=== PATIENT | female | born 1925 | race Caucasian/White ===

== ENCOUNTER → 2016-10-25 | Outpatient (CLI) | payer MEDICARE ==
[~2016-10-25] MED LIST: AMLO2.5T PO; AMLO5 PO; APIX2.5T PO; APIX5TAB PO; ATOR20TA15 PO; CALC1WAF CHEW; COMMODE 3-IN-11 MIS; CYCL1TAB29 PO; ENAL10TA PO; ENAL20TA PO; GETGO ROLLING W1 MI1; HYDR-3366 PO; MULT1TAB96 PO; NITR1SUB3 SL; OCUVTAB PO; OCUVTAB4 PO; OMEG100010 PO; ONDA4TAB7 SL; OXYC1TAB35 PO; OXYC20TA17 PO; PARO10TA2 PO; SENN1TAB PO; STOO100C PO; THER650C PO; TOPR50TA PO; TRIA37.53 PO; TUMS500C CHEW; WALKER WHEELS/F1 MIS; WHEEMIS3
[2016-10-25 17:13] LABS: BLOOD, URINE SMALL (NEG); COMMENT (UR) CULTURE INDICATED; CULTURE IF INDICATED CULTURE INDICATED; GLUCOSE,URINE NEG (NEG); KETONE, URINE NEG (NEG); MUCUS URINE FEW /lpf (OCC); SQUAMOUS EPITHELIAL CELL URINE 1 /hpf (0-5); URINE COLOR YELLOW (YELLW/STRAW)
[2016-10-25 17:15] LABS: NITRITE,URINE POS (NEG)
== END ==
LOC: PLAB 15:32
PROVIDERS: ATTEND Family Medicine
DX: N39.0 Urinary tract infection, site not specified (principal); B96.20 Unspecified Escherichia coli [E. coli] as the cause of diseases classified elsewhere
CPT/HCPCS: 81001; 87077; 87086; 87186

== ENCOUNTER → 2016-12-20 | Outpatient (CLI) | payer MEDICARE ==
[2016-12-20 16:28] LABS: FREE T4 1.19 NG/DL (0.76-1.46); HDL CHOLESTEROL 50.4 MG/DL (40.0-60.0); INDIRECT BILIRUBIN 0.2 MG/DL (0.0-0.8); TOTAL BILIRUBIN ADULT 0.3 MG/DL (0.2-1.0)
== END ==
LOC: PLAB 13:40
PROVIDERS: ATTEND Internal Medicine Interventional Cardiology
DX: I10 Essential (primary) hypertension (principal); E78.2 Mixed hyperlipidemia; Z79.899 Other long term (current) drug therapy
CPT/HCPCS: 36415; 80061; 80076; 82550; 84439; 84443

== ENCOUNTER 2017-01-11 13:56 | Inpatient (IN) | payer MEDICARE ==
[~2017-01-11] VITALS: Ht 157.5 cm; Wt 51.8 kg
[~2017-01-11 13:56] MED LIST changes: -AMLO5 PO; -APIX5TAB PO; -CALC1WAF CHEW; -COMMODE 3-IN-11 MIS; -CYCL1TAB29 PO; -ENAL10TA PO; -GETGO ROLLING W1 MI1; -HYDR-3366 PO; -MULT1TAB96 PO; -OCUVTAB PO; -ONDA4TAB7 SL; -PARO10TA2 PO; -SENN1TAB PO; -THER650C PO; -TRIA37.53 PO; -TUMS500C CHEW; -WALKER WHEELS/F1 MIS; -WHEEMIS3
[2017-01-17] MEDS ORDERED: TUMS500C CHEW (14:28)
[2017-01-17] MEDS ORDERED: THER650C PO (14:28)
[2017-01-17] MEDS ORDERED: PARO10TA2 PO (14:28)
[2017-01-17] MEDS ORDERED: ONDA4TAB7 SL (14:28)
[2017-01-31] MEDS ORDERED: EXPAREL PERI-ARTICULAR INJECTION (TOTAL VOL. 60 ML) P-ARTICULR SCH ×2 (07:30)
[2017-01-31] MEDS ORDERED: INSULIN HUMAN REGULAR 1,000 UNITS/10 ML VIAL SQ PRN (07:30)
[2017-01-31] MEDS ORDERED: SODIUM CHLORIDE 0.9% IV SCH ×2 (07:30→15:00)
[2017-01-31] MEDS ORDERED: LACTATED RINGER'S 1000 ML IV PRN (07:30)
[2017-01-31] MEDS ORDERED: SODIUM CHLORID 0.9% 500 ML IV PRN (07:30)
[2017-01-31] MEDS ORDERED: POVIDONE IODINE 5% (ANTISEPSIS KIT) 4 APPLICATIONS EACH NARE PRN (07:30)
[2017-01-31] MEDS ORDERED: CHLORHEXIDINE GLUCONATE 2 % 1 PACK (2 CLOTHS) TOPICAL PRN (07:30)
[2017-01-31] MEDS: POVIDONE IODINE 7.5% SCRUB 118 ML BOTTLE TOPICAL SCH (07:30)
[2017-01-31] MEDS ORDERED: METOPROLOL TARTRATE 25 MG TAB PO PRN (07:30)
[2017-01-31] MEDS ORDERED: VANCOMYCIN 1000 MG/NS 250 ML (for <70 kg) IV SCH ×2 (07:30)
[2017-01-31] MEDS ORDERED: DEXAMETHASONE SOD PHOS 20 MG/5 ML VIAL IV ONE (07:30)
[2017-01-31] MEDS ORDERED: ceFAZolin 2 GM PREMIX 50 ML IV SCH (07:30)
[2017-01-31] MEDS ORDERED: TRANEXAMIC ACID IV SCH ×2 (07:30→15:00)
[2017-01-31] MEDS ORDERED: DEXAMETHASONE SOD PHOS 20 MG/5 ML VIAL IV SCH (07:45)
[2017-01-31] MEDS ORDERED: OXYC20TA17 PO (08:16)
[2017-01-31] MEDS ORDERED: APIX2.5T PO (08:16)
[2017-01-31 08:20] VITALS: BP 205/85; PULSE 64; RESP 20; TEMP 97.7; O2SAT 100
[2017-01-31] MEDS ORDERED: GENTAMICIN SULFATE 80 MG/2 ML VIAL ONE (11:47)
[2017-01-31] MEDS ORDERED: PROPOFOL 200 MG/20 ML AMP IV ONE (12:26)
[2017-01-31] MEDS ORDERED: ePHEDrine/NS 25 MG/5 ML SYR IV ONE (12:26)
[2017-01-31] MEDS ORDERED: ONDANSETRON HCL 4 MG/2 ML VIAL IV PUSH ONE (12:27)
[2017-01-31] MEDS ORDERED: PHENYLEPH/NS 1000 MCG/10 ML SYR IV ONE (12:27)
[2017-01-31] MEDS ORDERED: LACTATED RINGER'S 1000 ML INJ 1,000 ML IV ONE (12:27)
--- NOTE | 2017-01-31 14:09 | PD.OP ---
cc: Jose Martin Munoz MD Operative Report Date of Surgery: Jan 31, 2017 Preoperative Diagnosis: Left hip severe osteoarthritis Postoperative Diagnosis: Same Procedure: Left total hip arthroplasty Anesthesia: Spinal Surgeon: Jose Martin Munoz [employer] Agent(s): MACKENZIE Cheatham The surgical procedure was assisted by my Advanced Registered Nurse Practitioner. My TUB PULLER presence was necessary throughout this case for the manipulation and positioning of the surgical extremity. My TUB PULLER was assisting me throughout the duration of this procedure. The skill set of an Advance Registered Nurse Practitioner was medically necessary to complete this procedure. During the surgical case, the surgical corsetier was working at the back table and the Advance Registered Nurse Practitioner was directly assisting me. Operation and Findings: IMPLANT DESCRIPTION: 1. [place] Gription Cup, acetabular size 52, secured with 2 screws. 2. [place] AltrX polyethylene, neutral. 4. [place] femoral stem size 10, no collar, standard offset. 5. Femoral head/neck metal, 36, -2. ESTIMATED BLOOD LOSS: 200 cc. JUSTIFICATION FOR PROCEDURE: The patient has end-stage osteoarthritis to the hip. There is an attached conservative measures pathway form in the chart that describes the nonoperative measures that were undertaken prior to consideration of surgical management. The patient understood the risks and benefits of surgical management. See my office notes for further details. PROCEDURE: The patient was brought back to the operative theatre. Adequate anesthesia was obtained. The patient received intravenous and vancomycin and Ancef. The patient was carefully placed on the operative table. The lower extremity was prepped and draped in the usual sterile fashion. Fluoroscopic images were obtained. We made a standard anterior incision over the hip. We dissected through the TFL fascia, exposing the anterior capsule. Arthrotomy was performed in a T-shaped fashion. The capsule was tagged with a #2 FiberWire. End-stage arthritis was identified. Osteotomy was performed through the femoral neck exposing the acetabulum. Remnants of the labrum were resected and osteophytes were removed. We sequentially reamed the acetabulum. We trialed the hip and placed the final cup into position. This was done under fluoroscopic guidance to obtain the appropriate inclination and anteversion. A manhole cover was placed into the acetabular component. We decided to secure the cup with 2 screws. One screw had good purchase and the other screw had excellent purchase. We then placed the final polyethylene into position and confirmed that it was well seated. Capsular attachments on the calcar and the inner aspect of the greater trochanter were resected. On the proximal aspect of the femur we used a rongeur , box osteotome, canal finder, sequential broaches and lateralizing rasp. We calcar planed the proximal femur. Then thoroughly irrigated the wound. We trialed the hip with the appropriate size stem. We placed the final stem in to position and trialed again. The hip was stable while it was externally rotated 70 degrees when the leg was lowered to the floor. The final head was applied, and final fluoroscopic images were obtained. The wound was thoroughly irrigated again. Interarticular injection of liposomal bupivacaine was given. The capsule was closed with #2 FiberWire and #1 Vicryl. The deep fascia was closed with a #2 Stratafix, followed by 2-0 Vicryl in the skin and kathy. Postop plan is to weight-bear as tolerated. DVT prophylaxis will be performed with SCDs, PADMINI altamirano, early mobilization, and resumption of outpatient dosage of Eliquis 2.5 mg by mouth twice a day.. Jose Martin Munoz MD Jan 31, 2017 14:09
[2017-01-31] MEDS ORDERED: HYDR-3366 PO (14:10)
[2017-01-31] MEDS ORDERED: ALUMINUM/MAGNESIUM/SIMETH 30 ML CUP PO PRN (14:15)
[2017-01-31] MEDS ORDERED: ONDANSETRON HCL 4 MG/2 ML VIAL IVP PRN (14:15)
[2017-01-31] MEDS ORDERED: ZOLPIDEM TARTRATE 5 MG TAB PO PRN (14:15)
[2017-01-31] MEDS ORDERED: MAGNESIUM HYDROXIDE SUSP 30 ML CUP PO PRN (14:15)
[2017-01-31] MEDS ORDERED: NALOXONE HCL 0.4 MG/ML AMP IV PRN (14:15)
[2017-01-31] MEDS ORDERED: ACETAMINOPHEN/HYDROcodone 325 MG/10 MG TAB PO PRN (14:15)
[2017-01-31] MEDS ORDERED: Post-op Orders (for Pharmacy) MISC XX ONE (14:15)
[2017-01-31] MEDS ORDERED: diphenhydrAMINE HCL 50 MG/ML VIAL IV PRN (14:15)
[2017-01-31] MEDS ORDERED: SODIUM CHLORIDE 0.9% FLUSH 5 ML FLUSH IVF PRN (14:15)
[2017-01-31] MEDS ORDERED: BISACODYL 10 MG SUPP RECTAL PRN (14:15)
[2017-01-31] MEDS ORDERED: DO NOT ADM ANY ANTICOAGULANT DRUGS PRN (14:29)
[2017-01-31] MEDS ORDERED: MIDAZOLAM HCL 2 MG/2 ML VIAL ONE (14:42)
[2017-01-31] MEDS ORDERED: PILL SPLITTER OTHER PRN (15:00)
--- NOTE | 2017-01-31 15:01 | RADRPT ---
EXAM DATE/TIME: 01/31/2017 12:50 [facility] COMPARISON: No previous studies available for comparison. INDICATIONS : Placement of total left hip. MEDICAL HISTORY : Hypertension. Arthritis. SURGICAL HISTORY : Appendectomy. Tonsillectomy. Hysterectomy. Right carpal tunnel surgery Total right hip surgery. ENCOUNTER: Initial ACUITY: 1 day PAIN SCORE: Non-responsive. LOCATION: Left Hip. FINDINGS: 2 spot intraoperative fluoroscopic views of left hip demonstrate a left total hip arthroplasty with s crew backed acetabular component. There is good alignment. CONCLUSION: Left total hip arthroplasty. Denis Lewis MD on January 31, 2017 at 14:59 Board Certified Radiologist. This report was verified electronically.
[2017-01-31] MEDS: SODIUM CHLOR 0.9% 1000 ML INJ 1,000 ML IV SCH (15:06)
--- NOTE | 2017-01-31 16:04 | RADRPT ---
EXAM DATE/TIME: 01/31/2017 14:55 [facility] COMPARISON: HIP LEFT (AP&LAT 2/3VWS) WO AP PELVIS, January 31, 2017, 12:50. INDICATIONS : Status post orif lt hip. MEDICAL HISTORY : None. SURGICAL HISTORY : None. ENCOUNTER: Subsequent ACUITY: 1 day PAIN SCORE: Non-responsive. LOCATION: Left Hip FINDINGS: AP view of the pelvis with 2 views of the left hip joint demonstrate no fracture or dislocation. Hard miguel is present related to total hip arthroplasty. The acetabular component contains 2 screws. There is adjacent soft tissue air and skin kathy, as expected. Patient is also post right total hip arthr oplasty. CONCLUSION: Spica changes following recent left total hip arthroplasty. No acute finding is identified. Murphy Gibson MD on January 31, 2017 at 16:01 Board Certified Radiologist. This report was verified electronically.
[2017-01-31] MEDS ORDERED: *morphine SULFATE 8 MG/ML PERIprocedure ONLY ONE (17:14)
[2017-01-31 17:30] VITALS: BP 175/70; PULSE 64; RESP 18; TEMP 95.6; O2SAT 100
--- NOTE | 2017-01-31 17:44 | HHI.DCPOC ---
Discharge Care Plan Diagnosis: (1) Osteoarthritis of left hip (2) Status post total hip replacement, left Your Health Problems Are: Difficulty with ADL Goals to Promote Your Health * To prevent worsening of your condition and complications * To maintain your health at the optimal level Directions to Meet Your Goals Take your medications as prescribed Follow your dietary instruction Follow activity as directed Keep your appointments as scheduled Take your immunizations and boosters as scheduled If your symptoms worsen call your PCP, if no PCP go to Urgent Care Center or Emergency Room Smoking is Dangerous to Your Health. Avoid second hand smoke Call the 24-hour hour crisis hotline for domestic abuse at Andrew Degroot Jan 31, 2017 17:44
--- NOTE | 2017-01-31 17:45 | HHI.FF ---
Face to Face Verification Diagnosis: (1) Osteoarthritis of left hip (2) Status post total hip replacement, left Physical Therapy Gait training, Transfer training, bed to chair Hip: Total hip Left LE Weight Bearing: WB as tolerated Left LE Range of Motion: Active ROM Nursing Nursing: Dressing changes Dressing Changes: Daily dressing change I have seen patient Roberta Kirkpatrick on 01/31/17. My clinical findings support the need for the requested home health care services because: Limited ability to care for self High risk of falls I certify that my clinical findings support that this patient is homebound because: Post-op weakness Unsteady gait/balance Andrew Degroot Jan 31, 2017 17:45
[2017-01-31] MEDS ORDERED: WALKER WHEELS/F1 MIS (17:46)
[2017-01-31] MEDS ORDERED: COMMODE 3-IN-11 MIS (17:46)
[2017-01-31] MEDS: ACETAMINOPHEN/HYDROcodone 325 MG/10 MG TAB PO PRN ×2 (17:48→22:41)
[2017-01-31] MEDS: MORPHINE SULFATE 4 MG/ML INJ IV PUSH PRN ×2 (18:38→21:26)
[2017-01-31 20:15] VITALS: BP 154/69; PULSE 76; RESP 15; TEMP 96.5; O2SAT 99
[2017-01-31] MEDS ORDERED: METOPROLOL SUCCINATE 50 MG EXTENDED RELEASE TAB PO SCH (21:00)
[2017-01-31] MEDS: SODIUM CHLORIDE 0.9% FLUSH 5 ML FLUSH IVF SCH (21:00)
[2017-01-31] MEDS: amLODIPine BESYLATE 5 MG TAB PO SCH (21:06)
[2017-01-31] MEDS: ENALAPRIL MALEATE 10 MG TAB PO SCH (21:06)
[2017-01-31] MEDS: ATORVASTATIN 20 MG TAB PO SCH (21:06)
[2017-02-01] VITALS (7 sets, daily range): BP systolic 144–176; BP diastolic 59–76; PULSE 73–91; RESP 16–20; TEMP 96.2–98.9; O2SAT 95–100
[2017-02-01] MEDS: MORPHINE SULFATE 4 MG/ML INJ IV PUSH PRN (00:54)
[2017-02-01] MEDS: SODIUM CHLOR 0.9% 1000 ML INJ 1,000 ML IV SCH ×3 (01:00→21:00)
[2017-02-01] MEDS: ACETAMINOPHEN/HYDROcodone 325 MG/10 MG TAB PO PRN ×2 (03:37→08:38)
[2017-02-01] MEDS: POVIDONE IODINE 7.5% SCRUB 118 ML BOTTLE TOPICAL SCH (04:14)
[2017-02-01 07:23] LABS: HEMATOCRIT 31.8 % (35.0-46.0); MEAN CELL VOLUME 91.8 FL (80.0-100.0); MEAN CORPUSCULAR HEMOGLOBIN 30.7 PG (27.0-34.0); MEAN CORPUSCULAR HGB CONC 33.4 % (32.0-36.0); PLATELET COUNT 136 TH/MM3 (150-450); RED BLOOD COUNT 3.46 MIL/MM3 (4.00-5.30); RED CELL DISTRIBUTION WIDTH 12.7 % (11.6-17.2); REVIEW FLAG FINAL; WHITE BLOOD COUNT 10.8 TH/MM3 (4.0-11.0)
[2017-02-01] MEDS: PARoxetine HCL 20 MG TAB PO SCH (08:38)
[2017-02-01] MEDS: amLODIPine BESYLATE 5 MG TAB PO SCH ×2 (08:39→20:42)
[2017-02-01] MEDS: ENALAPRIL MALEATE 10 MG TAB PO SCH ×2 (08:39→20:41)
[2017-02-01] MEDS: SODIUM CHLORIDE 0.9% FLUSH 5 ML FLUSH IVF SCH ×2 (08:43→20:44)
[2017-02-01] MEDS ORDERED: APIXABAN 2.5 MG TABLET PO SCH ×2 (09:00→14:00)
--- NOTE | 2017-02-01 11:48 | PD.CONS ---
HPI Service [facility] Consult Requested By Dr. Munoz Reason for Consult Medical management Primary Care Physician Silvestre Dozier MD Diagnoses: (1) Osteoarthritis of left hip (2) Status post total hip replacement, left (3) Coronary artery disease (4) Hypertension History of Present Illness 89-year-old female with a medical history significant for hypertension, hyperlipidemia, coronary artery disease, osteoarthritis admitted for left hip arthroplasty. Patient reports she has had problems with the left hip for years. She has tried conservative management with no significant relief. The patient was admitted for left knee arthroplasty. She is seen postoperatively. Currently she is complaining of severe pain. [place] is not helping. It is worth noting she was previously under the care of pain management and may require more pain medications. She reports her coronary artery disease has been stable. She had a stent placed in 2011. No chest pain or shortness of breath with exertion. The rest of the patient's medical problems are stable. Review of Systems Constitutional: DENIES: Fever, Chills Eyes: DENIES: Double Vision Ears, nose, mouth, throat: DENIES: Oral lesions Respiratory: DENIES: Cough, Shortness of breath Cardiovascular: DENIES: Chest pain, Palpitations Gastrointestinal: DENIES: Nausea, Vomiting Genitourinary: DENIES: Dysuria Musculoskeletal: COMPLAINS OF: Joint pain, Stiffness Integumentary: DENIES: Rash Neurologic: DENIES: Headache Psychiatric: DENIES: Anxiety, Confusion Except as stated in HPI: all other systems reviewed are Neg Past Family Social History Allergies: Coded Allergies: Lyrica (Verified Allergy, Severe, ANKLES SWELL, 01/31/17) Past Medical History Hypertension Hyperlipidemia Osteoarthritis Coronary artery disease Chronic back pain Past Surgical History Appendectomy Bladder lift surgery Hand surgery Reported Medications Reported Meds & Active Scripts Active [place] (Hydrocodone-Acetaminophen) 10-325 Mg Tab 1-2 Tab PO Q4H PRN Reported Oxycontin (Oxycodone HCl) 20 Mg Tab 20 Mg PO Q12HR Eliquis (Apixaban) 2.5 Mg Tab 2.5 Mg PO BID Theracran Hp (Cranberry (Vaccinium Macrocarpon)) 180 Mg Cap 1 Cap PO BID Tums (Calcium Carbonate (Antacid)) 500 Mg Chew 500 Mg CHEW PRN Ondansetron Odt 4 Mg Tab 4 Mg SL Q6HR PRN Paroxetine (Paroxetine HCl) 10 Mg Tab 10 Mg PO DAILY Enalapril (Enalapril Maleate) 20 Mg Tab 20 Mg PO BID Amlodipine (Amlodipine Besylate) 2.5 Mg Tab 2.5 Mg PO BID Atorvastatin (Atorvastatin Calcium) 20 Mg Tab 20 Mg PO HS Toprol XL (Metoprolol Succinate) 50 Mg Tab 75 Mg PO BID Stool Softener (Docusate Sodium) 100 Mg Cap 200 Mg PO HS PRN Nitroglycerin SL (Nitroglycerin) 0.4 Mg Subl 0.4 Mg SL DIRECTED PRN ONE TABLET UNDER THE TONGUE NEEDED FOR CHEST PAIN, MAY REPEAT EVERY FIVE MINUTES FOR A TOTAL OF 3 DOSES OR CALL 911 IF NO RELIEF [place] 3 1000 mg ([place]-3 Fatty Acids) 1 Cap Cap 1 Cap PO DAILY Oxycodone-Acetaminophen 7.5-325 mg Tab 1 Tab PO Q4H PRN Preservision Areds (Multiple Vitamins W/ Minerals) 1 Tab 2 Tab PO DAILY Family History Reviewed and noncontributory. Social History No tobacco or alcohol use. Physical Exam Vital Signs Vital Signs Date Time Temp Pulse Resp B/P Pulse Ox O2 Delivery O2 Flow Rate FiO2 02/01/17 09:14 95 21 02/01/17 08:00 96.8 74 19 161/70 99 02/01/17 04:20 97.9 80 16 144/59 100 02/01/17 00:35 97.0 83 16 160/69 100 01/31/17 20:15 96.5 76 15 154/69 99 01/31/17 18:44 Nasal Cannula 2.00 01/31/17 17:30 95.6 64 18 175/70 100 01/31/17 17:00 97.4 75 14 157/72 99 Nasal Cannula 2 01/31/17 16:45 73 14 150/75 99 01/31/17 16:30 60 14 144/67 99 01/31/17 16:15 58 16 155/72 99 01/31/17 16:00 59 16 167/75 100 01/31/17 15:45 55 12 177/75 99 01/31/17 15:30 53 12 174/75 100 01/31/17 15:15 56 12 177/77 99 01/31/17 15:00 57 10 174/82 99 01/31/17 14:45 50 10 174/74 99 Nasal Cannula 2 01/31/17 14:35 85 12 140/70 99 Nasal Cannula 2 Physical Exam GENERAL: Elderly female reporting significant discomfort on the left hip. SKIN: No rashes, ecchymoses or lesions. Cool and dry. HEAD: Atraumatic. Normocephalic. No temporal or scalp tenderness. EYES: Pupils equal round and reactive.. ENT: Nose without drainage. Airway patent. NECK: Trachea midline. No JVD or lymphadenopathy. Supple, nontender, no meningeal signs. CARDIOVASCULAR: Regular rate and rhythm without murmurs, gallops, or rubs. RESPIRATORY: Clear to auscultation. Breath sounds equal bilaterally. No wheezes , rales, or rhonchi. GASTROINTESTINAL: Abdomen soft, non-tender, nondistended. No hepato-splenomegaly , or palpable masses. No guarding. MUSCULOSKELETAL: Left hip postoperative dressing is clean and dry. Patient is not willing to move the hip due to pain. Other extremities without edema. NEUROLOGICAL: Awake and alert. Normal speech. Laboratory Laboratory Tests Test 02/01/17 06:00 White Blood Count 10.8 Red Blood Count 3.46 Hemoglobin 10.6 Hematocrit 31.8 Mean Corpuscular Volume 91.8 Mean Corpuscular Hemoglobin 30.7 Mean Corpuscular Hemoglobin 33.4 Concent Red Cell Distribution Width 12.7 Platelet Count 136 Mean Platelet Volume 10.0 Result Diagram: 02/01/17 0600 Imaging Last Impressions Hip and Pelvis X-Ray 01/31/17 0000 Signed Impressions: Service Date/Time: Tuesday, January 31, 2017 14:55 - CONCLUSION: Spica changes following recent left total hip arthroplasty. No acute finding is identified. Murphy Gibson MD Hip X-Ray 01/31/17 0000 Signed Impressions: Service Date/Time: Tuesday, January 31, 2017 12:50 - CONCLUSION: Left total hip arthroplasty. Denis Lewis MD Assessment and Plan Problem List: (1) Osteoarthritis of left hip ICD Code: M16.12 Status: Acute (2) Status post total hip replacement, left ICD Code: Z96.642 Status: Acute (3) Coronary artery disease ICD Code: I25.10 Status: Acute (4) Hypertension ICD Code: I10 Status: Acute Assessment and Plan 89-year-old female with: Osteoarthritis of the left hip status post arthroplasty: - Pain is currently uncontrolled. She was previously under the care of pain management and may have a higher tolerance for pain medication. Given her advanced age, will give her 1 dose of Percocet and if pain better control, would change [place] to Percocet. - Further postop care per orthopedics. Coronary artery disease: Continue Lipitor, metoprolol. Patient on Eliquis. Hypertension: Continue metoprolol, enalapril, and Norvasc. Depression: Continue Paxil GI prophylaxis: PPI. Stool softener PRN constipation. DVT PPx: Betty Mcneill MD Feb 01, 2017 11:48
[2017-02-01] MEDS ORDERED: oxyCODONE/ACETAMINOPHEN 7.5 MG/325 MG TAB PO ONE (12:00)
--- NOTE | 2017-02-01 13:18 | PD.ORT.PN ---
Subjective Post Op Day #: 1 Subjective Remarks The patient is resting in bed today with moderate pain. Patient's hydrocodone was not effective. Patient was given Percocet by medical with better benefit. Objective Vitals Vital Signs Date Time Temp Pulse Resp B/P Pulse Ox O2 Delivery O2 Flow Rate FiO2 02/01/17 12:00 96.2 78 18 176/76 100 02/01/17 09:14 95 21 02/01/17 08:00 96.8 74 19 161/70 99 02/01/17 04:20 97.9 80 16 144/59 100 02/01/17 00:35 97.0 83 16 160/69 100 01/31/17 20:15 96.5 76 15 154/69 99 01/31/17 18:44 Nasal Cannula 2.00 01/31/17 17:30 95.6 64 18 175/70 100 01/31/17 17:00 97.4 75 14 157/72 99 Nasal Cannula 2 01/31/17 16:45 73 14 150/75 99 01/31/17 16:30 60 14 144/67 99 01/31/17 16:15 58 16 155/72 99 01/31/17 16:00 59 16 167/75 100 01/31/17 15:45 55 12 177/75 99 01/31/17 15:30 53 12 174/75 100 01/31/17 15:15 56 12 177/77 99 01/31/17 15:00 57 10 174/82 99 01/31/17 14:45 50 10 174/74 99 Nasal Cannula 2 01/31/17 14:35 85 12 140/70 99 Nasal Cannula 2 I/O 01/31/17 01/31/17 01/31/17 02/01/17 02/01/17 02/01/17 07:00 15:00 23:00 07:00 15:00 23:00 Intake Total 1800 ml 680 ml 600 ml Output Total 1050 ml 725 ml 750 ml Balance 750 ml -45 ml -150 ml Intake Oral 480 ml 600 ml IV Total 200 ml Other 1800 ml Output Urine Total 750 ml 725 ml 750 ml Estimated Blood Loss 300 ml # Voids 1 # Bowel Movements 1 0 0 Result Diagram: 02/01/17 0600 Procedures Left SHYANN Objective Remarks The patient's dressing is C/D/I. EHL/TA/G intact. 2+ pedal pulse. Mild swelling. + SILT. Calf is soft and nontender. Assessment & Plan Ortho Post Op Day #: 1 Problem List: Assessment and Plan POD #1: Left SHYANN 1. WBAT LLE 2. Eliquis for DVT prophylaxis 3. Ice to the left hip PRN 4. Anticipatory discharge to home with home health vs. [facility] on Sunday. 5. Changing patient's pain medication from hydrocodone to percocet. Andrew Degroot Feb 01, 2017 13:18
[2017-02-01] MEDS: APIXABAN 2.5 MG TABLET PO SCH (14:10)
[2017-02-01] MEDS ORDERED: DEXAMETHASONE SOD PHOS 20 MG/5 ML VIAL IV ONE (15:00)
[2017-02-01] MEDS: oxyCODONE/ACETAMINOPHEN 7.5 MG/325 MG TAB PO PRN ×2 (15:38→20:42)
[2017-02-01] MEDS: MULTIVITAMINS/MINERALS THERAPEUTIC TAB PO SCH (20:42)
[2017-02-01] MEDS: METOPROLOL TARTRATE 50 MG TAB PO SCH (20:44)
[2017-02-01] MEDS: ATORVASTATIN 20 MG TAB PO SCH (20:44)
[2017-02-01] MEDS: DOCUSATE SODIUM 100 MG CAP PO SCH (20:44)
[2017-02-02] VITALS: BP 154/72; PULSE 75; RESP 20; TEMP 97.9; O2SAT 97
[2017-02-02] MEDS: oxyCODONE/ACETAMINOPHEN 7.5 MG/325 MG TAB PO PRN ×3 (01:12→12:22)
[2017-02-02] MEDS: APIXABAN 2.5 MG TABLET PO SCH ×2 (01:16→12:23)
[2017-02-02 04:00] VITALS: BP 133/60; PULSE 65; RESP 18; TEMP 97.1; O2SAT 97
[2017-02-02] MEDS: SODIUM CHLOR 0.9% 1000 ML INJ 1,000 ML IV SCH (07:00)
[2017-02-02 07:16] LABS: HEMATOCRIT 30.8 % (35.0-46.0); MEAN CELL VOLUME 90.7 FL (80.0-100.0); MEAN CORPUSCULAR HEMOGLOBIN 30.3 PG (27.0-34.0); MEAN CORPUSCULAR HGB CONC 33.5 % (32.0-36.0); PLATELET COUNT 131 TH/MM3 (150-450); RED CELL DISTRIBUTION WIDTH 12.7 % (11.6-17.2); REVIEW FLAG FINAL; WHITE BLOOD COUNT 12.5 TH/MM3 (4.0-11.0)
[2017-02-02] MEDS: POVIDONE IODINE 7.5% SCRUB 118 ML BOTTLE TOPICAL SCH (07:30)
[2017-02-02] MEDS: DOCUSATE SODIUM 100 MG CAP PO SCH (07:58)
[2017-02-02] MEDS: MULTIVITAMINS/MINERALS THERAPEUTIC TAB PO SCH (07:58)
[2017-02-02] MEDS: PARoxetine HCL 20 MG TAB PO SCH (07:59)
[2017-02-02] MEDS: SODIUM CHLORIDE 0.9% FLUSH 5 ML FLUSH IVF SCH (07:59)
[2017-02-02] MEDS: ENALAPRIL MALEATE 10 MG TAB PO SCH (07:59)
[2017-02-02] MEDS: METOPROLOL TARTRATE 50 MG TAB PO SCH (07:59)
[2017-02-02] MEDS: amLODIPine BESYLATE 5 MG TAB PO SCH (07:59)
[2017-02-02 08:00] VITALS: BP_SYST 126; BP_SYST 131; BP_DIAS 59; BP_DIAS 60; PULSE 65; PULSE 71; RESP 14; RESP 18; TEMP 97; TEMP 99.5; O2SAT 94
[2017-02-02 12:00] VITALS: BP 140/65; PULSE 70; RESP 18; TEMP 98; O2SAT 99
--- NOTE | 2017-02-04 23:23 | HHI.DS ---
Discharge Summary Admission Date Jan 31, 2017 at 06:45 Discharge Date: Feb 02, 2017 Admitting Diagnosis OA of left hip Status post total hip replacement, left Diagnosis: (1) Osteoarthritis of left hip Diagnosis: Principal (2) Status post total hip replacement, left Diagnosis: Principal Procedures Left SHYANN Brief History This is a 89 year old female patient with severe OA of the left hip. CBC/BMP: 02/02/17 0639 Significant Findings Laboratory Tests Test 02/02/17 06:39 White Blood Count 12.5 TH/MM3 (4.0-11.0) Red Blood Count 3.40 MIL/MM3 (4.00-5.30) Hemoglobin 10.3 GM/DL (11.6-15.3) Hematocrit 30.8 % (35.0-46.0) Platelet Count 131 TH/MM3 (150-450) PE at Discharge The patient's dressing is C/D/I. EHL/TA/G intact. 2+ pedal pulse. Mild swelling. + SILT. Calf is soft and nontender. Hospital Course The patient was admitted to the hospital for severe OA of the left hip for a left SHYANN. The patient's surgery went well with no complications. The patient is WBAT on the left LE. The patient was placed on a regular diet. The patient was discharged to a SNF and will f/u with Dr. Munoz in 2 weeks. Pt Condition on Discharge: Stable Discharge Disposition: Disch w/ Home Health Serv Discharge Instructions Diet Instructions: As Tolerated, No Restrictions Activities You Can Perform: Weight Bearing as Lior Activities to Avoid: Strenuous Activity Follow up Referrals: Orthopedics with Jose Martin Munoz MD New Medications: Commode 3-in-1 (Commode 3-in-1) 1 Mis Mis 1 EA .ROUTE DIRECTED #1 Ref 0 EA Hydrocodone-Acetaminophen ([place]) 10-325 Mg Tab 1-2 TAB PO Q4H PRN PAIN #60 Ref 0 TAB Walker with Front Wheels (Walker with Front Wheels) 1 Mis Mis 1 EA .ROUTE DIRECTED #1 Ref 0 EA Continued Medications: Amlodipine (Amlodipine) 2.5 Mg Tab 2.5 MG PO BID Blood Pressure Management #30 Ref 0 TAB Apixaban (Eliquis) 2.5 Mg Tab 2.5 MG PO BID Blood Clot Prevention Ref 0 TAB Atorvastatin (Atorvastatin) 20 Mg Tab 20 MG PO HS Cholesterol Management #30 Ref 0 TAB Calcium Carbonate (Antacid) (Tums) 500 Mg Chew 500 MG CHEW PRN HEARTBURN Ref 0 TAB Cranberry (Vaccinium Macrocarpon) (Theracran Hp) 180 Mg Cap 1 CAP PO BID Docusate Sodium (Stool Softener) 100 Mg Cap 200 MG PO HS PRN CONSTIPATION Enalapril (Enalapril) 20 Mg Tab 20 MG PO BID Blood Pressure Management #30 Ref 0 TAB Metoprolol Succinate ER 24 HR (Toprol XL) 50 Mg Tab 75 MG PO BID Blood Pressure Management #30 Ref 0 TAB Multiple Vitamins W/ Minerals (Preservision Areds) 1 Tab 2 TAB PO DAILY Nutritional Supplement Ref 0 TAB Nitroglycerin SL (Nitroglycerin SL) 0.4 Mg Subl 0.4 MG SL DIRECTED ONE TABLET UNDER THE TONGUE NEEDED FOR CHEST PAIN, MAY REPEAT EVERY FIVE MINUTES FOR A TOTAL OF 3 DOSES OR CALL 911 IF NO RELIEF PRN CHEST PAIN #100 Ref 0 TAB.SL Ondansetron Odt (Ondansetron Odt) 4 Mg Tab 4 MG SL Q6HR PRN Nausea/Vomiting Ref 0 TAB Paroxetine (Paroxetine) 10 Mg Tab 10 MG PO DAILY #30 Ref 0 TAB Discontinued Medications: Thomas-3 Fatty Acids (Thomas 3 1000 mg) 1 Cap Cap 1 CAP PO DAILY Nutritional Supplement Oxycodone ER (Oxycontin) 20 Mg Tab 20 MG PO Q12HR Pain Management Ref 0 TAB Oxycodone-Acetaminophen (Oxycodone-Acetaminophen) 7.5-325 mg Tab 1 TAB PO Q4H PRN PAIN Ref 0 TAB Andrew Degroot Feb 04, 2017 23:23
[2017-02-12] MEDS ORDERED: WHEEMIS3 (15:37)
[2017-02-12] MEDS ORDERED: GETGO ROLLING W1 MI1 (15:37)
[2017-02-12] MEDS ORDERED: COMMODE 3-IN-11 MIS (15:37)
[2017-02-15] MEDS ORDERED: PARO10TA2 PO (12:25)
[2017-02-15] MEDS ORDERED: OCUVTAB PO (12:25)
[2017-02-15] MEDS ORDERED: TOPR50TA PO (12:25)
[2017-02-15] MEDS ORDERED: SENN1TAB PO (12:25)
[2017-02-15] MEDS ORDERED: CYCL1TAB29 PO (12:25)
[2017-02-15] MEDS ORDERED: OXYC1TAB35 PO (12:25)
[2017-02-15] MEDS ORDERED: ATOR20TA15 PO (12:25)
[2017-02-15] MEDS ORDERED: ENAL10TA PO (12:25)
[2017-02-15] MEDS ORDERED: AMLO5 PO (12:25)
[2017-02-15] MEDS ORDERED: APIX5TAB PO (12:25)
== END 2017-02-02 12:55 | DRG 470 ==
LOC: HSDI 01-31 06:45 → N06B 01-31 17:36
PROVIDERS: ADMIT Orthopaedic Surgery; ATTEND Orthopaedic Surgery
PROC: 0SRB02A Replacement of Left Hip Joint with Metal on Polyethylene Synthetic Substitute, Uncemented, Open Approach (ICD-10-PCS; principal; 2017-01-31 12:09)
DX: M16.12 Unilateral primary osteoarthritis, left hip (principal); I10 Essential (primary) hypertension; F32.9 Major depressive disorder, single episode, unspecified; I25.10 Atherosclerotic heart disease of native coronary artery without angina pectoris; Z95.5 Presence of coronary angioplasty implant and graft; Z79.02 Long term (current) use of antithrombotics/antiplatelets; E78.5 Hyperlipidemia, unspecified; M54.9 Dorsalgia, unspecified; G89.29 Other chronic pain
CPT/HCPCS: 73502; 76000; 85027; 86850; 86900; 86901; 94150; C1776; C9290; J0690; J1100; J1200; J1580; J2250; J2270; J2370; J2405; J3010; J3370; J7030; J7050; J7120

== ENCOUNTER → 2017-01-17 | Outpatient (CLI) | payer MEDICARE ==
[~2017-01-17] MED LIST changes: +AMLO5 PO; +APIX5TAB PO; +CALC1WAF CHEW; +COMMODE 3-IN-11 MIS; +CYCL1TAB29 PO; +ENAL10TA PO; +GETGO ROLLING W1 MI1; +HYDR-3366 PO; +MULT1TAB96 PO; +OCUVTAB PO; +ONDA4TAB7 SL; +PARO10TA2 PO; +SENN1TAB PO; +THER650C PO; +TRIA37.53 PO; +TUMS500C CHEW; +WALKER WHEELS/F1 MIS; +WHEEMIS3
[2017-01-17 14:04] LABS: AUTOMATED NEUTROPHIL # 2.7 TH/MM3 (1.8-7.7); BASOPHIL % 0.2 % (0.0-2.0); EOSINOPHIL % 0.9 % (0.0-4.0); HEMATOCRIT 37.9 % (35.0-46.0); HEMO FLAGS DIFF FINAL; LYMPH % 37.5 % (9.0-44.0); MEAN CELL VOLUME 91.8 FL (80.0-100.0); MEAN CORPUSCULAR HGB CONC 33.8 % (32.0-36.0); MONO % 9.3 % (0.0-8.0); NEUT % 52.1 % (16.0-70.0); PLATELET COUNT 196 TH/MM3 (150-450); RED BLOOD COUNT 4.13 MIL/MM3 (4.00-5.30); WHITE BLOOD COUNT 5.2 TH/MM3 (4.0-11.0)
[2017-01-17 14:10] LABS: APTT (PATIENT) 25.4 SEC (24.3-30.1); PROTHROMBIN TIME - PATIENT 10.7 SEC (9.8-11.6)
[2017-01-17 14:20] LABS: WESTERGREN SEDIMENTATION RATE 23 mm/hr (0-30)
[2017-01-17 14:24] LABS: BLOOD, URINE TRACE (NEG); COMMENT (UR) CULT NOT INDICATED; CULTURE IF INDICATED CULT NOT INDICATED; GLUCOSE,URINE NEG (NEG); KETONE, URINE NEG (NEG); MUCUS URINE FEW /lpf (OCC); NITRITE,URINE NEG (NEG); SQUAMOUS EPITHELIAL CELL URINE <1 /hpf (0-5); URINE COLOR YELLOW (YELLW/STRAW)
[2017-01-17 14:29] LABS: ANION GAP 5 MEQ/L (5-15); AST (GOT) 19 U/L (15-37); BICARBONATE 34.7 MEQ/L (21.0-32.0); BLOOD UREA NITROGEN 24 MG/DL (7-18); CHLORIDE 101 MEQ/L (98-107); GLOMERULAR FILTRATION RATE 65 ML/MIN (>89); GLUCOSE,FASTING 134 MG/DL (74-99); POTASSIUM 4.2 MEQ/L (3.5-5.1); SODIUM (NA) 141 MEQ/L (136-145)
[2017-01-17 14:32] LABS: ALKALINE PHOSPHATASE 90 U/L (45-117); ALT (GPT) 25 U/L (10-53); TOTAL BILIRUBIN ADULT 0.4 MG/DL (0.2-1.0)
--- NOTE | 2017-01-17 14:59 | RADRPT ---
EXAM DATE/TIME: 01/17/2017 14:28 [facility] COMPARISON: No previous studies available for comparison. INDICATIONS : Evaluate for pneumonia, pneumothorax or communicable disease. Pre op for total hip replacement. MEDICAL HISTORY : Hypertension. Arthritis. SURGICAL HISTORY : Tonsillectomy. Appendectomy. Hysterectomy. Right carpal tunnel surgery. Right total hip replacement. ENCOUNTER: Initial ACUITY: 1 day PAIN SCORE: 0/10 LOCATION: Chest FINDINGS: Granulomas are seen in the right lung. Left lung is clear. Heart is minimally enlarged. Pulmonary vascularity is normal. Portion of the bony skeleton visualized is unremarkable. CONCLUSION: Granulomas. Otherwise, negative. Doug Muro MD FACR on January 17, 2017 at 14:46 Board Certified Radiologist. This report was verified electronically.
--- NOTE | 2017-01-18 13:27 | EKG ---
Date Performed: 01/17/2017 Time Performed: 13:44:03 PTAGE: 89 years EKG: Sinus rhythm NORMAL ECG PREVIOUS TRACING : 06/08/2009 14.47 Compared to prior tracing no significant change DOCTOR: Christiano Vega Interpretating Date/Time 01/18/2017 13:26:58
== END ==
LOC: CPRE 13:11
PROVIDERS: ATTEND Orthopaedic Surgery
DX: Z01.810 Encounter for preprocedural cardiovascular examination (principal); Z01.811 Encounter for preprocedural respiratory examination; Z01.812 Encounter for preprocedural laboratory examination; M79.609 Pain in unspecified limb; M25.50 Pain in unspecified joint; Z96.60 Presence of unspecified orthopedic joint implant
CPT/HCPCS: 36415; 71020; 80053; 81001; 85025; 85610; 85652; 85730; 93005

== ENCOUNTER → 2017-01-22 | Outpatient (CLI) | payer MEDICARE ==
[~2017-01-22] MED LIST changes: -CALC1WAF CHEW; -MULT1TAB96 PO; -TRIA37.53 PO
[2017-01-22 17:53] LABS: HEMOGLOBIN Ao 85.2 %; HEMOGLOBIN F 0.8 %; HEMOGLOBIN LA1C 2.1 %; HEMOGLOBIN P3 5.5 %
== END ==
LOC: PLAB 13:51
PROVIDERS: ATTEND Family Medicine
DX: R73.9 Hyperglycemia, unspecified (principal)
CPT/HCPCS: 36415; 83036

== ENCOUNTER → 2017-05-16 | Day surgery (SDC) | payer MEDICARE ==
[~2017-05-16] MED LIST changes: -AMLO2.5T PO; -APIX2.5T PO; +CALC550C CHEW; -COMMODE 3-IN-11 MIS; -ENAL20TA PO; -GETGO ROLLING W1 MI1; -HYDR-3366 PO; +IOHEXOL 180 MG/ML 20 ML VIAL (for RAD DIAG) EPIDURAL ONE; +LIDOCAINE HCL 1% PF 30 ML VIAL EPIDURAL ONE; +MEPERIDINE HCL 25 MG/ML VIAL IV ONE; -OCUVTAB4 PO; -OMEG100010 PO; -ONDA4TAB7 SL; +OXYC-259 PO; -OXYC20TA17 PO; +PROPOFOL 200 MG/20 ML AMP IV ONE; -STOO100C PO; +TRIAMCINOLONE ACETONIDE 40 MG/ML VIAL NERV BLOCK ONE; -TUMS500C CHEW; -WALKER WHEELS/F1 MIS; -WHEEMIS3; +ZOFR4TAB PO
--- NOTE | 2017-05-19 21:23 | M6 ---
cc: NADINE GUALLPA M.D. DATE: 05/16/2017. DATE OF : 1925 PROCEDURE PERFORMED: Fluoroscopically-guided left C6-7 transforaminal epidural steroid injection. DESCRIPTION OF THE PROCEDURE IN DETAIL: History and physical was completed and signed. Consent was signed. Procedure site was marked. Medications were listed and reconciled. Pain score was recorded. Allergies were noted. Time out was taken. Fluoroscopy time was recorded where applicable. Sedation was administered or directed by Dr. Guallpa. The patient was given oxygen. The patient was monitored by a registered nurse. Total procedure time was greater than 15 minutes. IV was started, blood pressure cuff, pulse oximeter and EKG were applied. The patient was placed in the supine position on a Jose table and sedated with small amounts of Demerol and propofol titrated to effect. Vital signs were monitored and remained stable throughout the procedure. The cervical area was prepped with alcohol and 10% Betadine solution and draped with sterile drapes. Fluoroscopy was used in an oblique angle to clearly visualize the left C6-7 neural foramen. The skin was infiltrated with 1% Xylocaine using a 27-gauge needle. Then a 3-1/2-inch 25-gauge spinal needle was advanced using fluoroscopic guidance to make bony contact dorsal to the neural foramen and then gently redirected into the dorsal-most aspect of the foramen itself. There was negative aspiration for blood or any other type of fluid and the patient was given 2 mL of 1% Xylocaine, 2 mL of Omnipaque and 40 mg of Kenalog. Following the procedure, the patient was taken to the recovery room with stable vital signs neurologically intact. WMD RASHAUN Vega/SELENE /9:33 AM /9:17 PM
== END | disposition home or self-care (01) ==
LOC: PHSDC 08:18
PROVIDERS: ATTEND Pain Medicine Interventional Pain Medicine
DX: M54.2 Cervicalgia (principal); M25.512 Pain in left shoulder; M79.622 Pain in left upper arm
CPT/HCPCS: 64479; 99152; J2175; J3301; Q9965

== ENCOUNTER → 2017-06-13 | Outpatient (CLI) | payer MEDICARE ==
[~2017-06-13] MED LIST changes: -IOHEXOL 180 MG/ML 20 ML VIAL (for RAD DIAG) EPIDURAL ONE; -LIDOCAINE HCL 1% PF 30 ML VIAL EPIDURAL ONE; -MEPERIDINE HCL 25 MG/ML VIAL IV ONE; -PROPOFOL 200 MG/20 ML AMP IV ONE; -TRIAMCINOLONE ACETONIDE 40 MG/ML VIAL NERV BLOCK ONE
[2017-06-13 16:42] LABS: HDL CHOLESTEROL 52.1 MG/DL (40.0-60.0); INDIRECT BILIRUBIN 0.3 MG/DL (0.0-0.8); TOTAL BILIRUBIN ADULT 0.4 MG/DL (0.2-1.0)
== END ==
LOC: PLAB 13:00
PROVIDERS: ATTEND Internal Medicine Interventional Cardiology
DX: E78.2 Mixed hyperlipidemia (principal); Z79.899 Other long term (current) drug therapy
CPT/HCPCS: 36415; 80061; 80076; 82550